=== PATIENT | female | born 2000 | race African-American/Black ===

== ENCOUNTER 2022-01-02 21:40 | Emergency (ER) | payer OTHER ==
[~2022-01-02] VITALS: Ht 154.9 cm; Wt 74.8 kg
[2022-01-02] MEDS ORDERED: PANADOL (22:12)
[2022-01-02] MEDS ORDERED: TUSSIN (22:12)
== END 2022-01-02 23:51 | disposition home or self-care (01) ==
LOC: ER 21:40
DX: H66.91 Otitis media, unspecified, right ear (principal)